=== PATIENT | female | born 1980 | race Caucasian/White ===

== ENCOUNTER 2018-11-16 04:57 | Emergency (ER) | payer OTHER, SELFPAY ==
[2018-11-16] MEDS ORDERED: diphenhydrAMINE 25 MG CAP ONE (05:52)
[2018-11-16] MEDS ORDERED: Cephalexin 250 MG CAP ONE (05:52)
[2018-11-16] MEDS ORDERED: predniSONE 20 MG TAB ONE (05:52)
== END 2018-11-16 06:05 | disposition home or self-care (01) ==
LOC: NAV ERS 04:57
DX: L01.00 Impetigo, unspecified (principal); L29.9 Pruritus, unspecified; F17.210 Nicotine dependence, cigarettes, uncomplicated
CPT/HCPCS: 99282; J7512; Q0163

== ENCOUNTER 2025-05-02 13:58 | Emergency (ER) | payer SELFPAY | END 2025-05-02 15:30 | disposition home or self-care (01) | LOC: NAV ERS 13:58 | DX: S52.501A Unspecified fracture of the lower end of right radius, initial encounter for closed fracture (principal); F17.210 Nicotine dependence, cigarettes, uncomplicated; W19.XXXA Unspecified fall, initial encounter | CPT/HCPCS: 29125; 99283 ==